=== PATIENT | female | born 1980 | race Two or more races ===

== ENCOUNTER 2025-01-11 02:23 | Emergency (ER) | payer BC ==
[~2025-01-11] VITALS: Ht 170.2 cm; Wt 108.9 kg
[2025-01-11] MEDS ORDERED: ORPHENADRINE CITRATE 30 MG/ML AMPUL IM STA (02:34)
[2025-01-11] MEDS ORDERED: KETOROLAC TROMETHAMINE 30 MG VIAL IM STA (02:35)
[2025-01-11] MEDS ORDERED: KETOROLAC TROMETHAMINE 30 MG VIAL ONE (02:55)
[2025-01-11] MEDS ORDERED: ORPHENADRINE CITRATE 30 MG/ML AMPUL ONE (02:55)
== END 2025-01-11 05:16 | disposition home or self-care (01) ==
LOC: ER 02:23
DX: S82.041A Displaced comminuted fracture of right patella, initial encounter for closed fracture (principal); W18.39XA Other fall on same level, initial encounter; Y93.89 Activity, other specified; Y92.89 Other specified places as the place of occurrence of the external cause; Y99.9 Unspecified external cause status